=== PATIENT | female | born 1960 | race Caucasian/White ===

== ENCOUNTER → 2016-10-28 | Outpatient (CLI) | payer MEDICAID ==
[2016-10-28 09:18] LABS: ALT 21 U/L (9-52); AST 16 U/L (14-36); Alkaline Phosphatase 63 U/L (38-126); Anion Gap 11 mmol/L; Blood Urea Nitrogen 10 mg/dL (7-17); Calcium 9.5 mg/dL (8.4-10.2); Carbon Dioxide 28 mmol/L (22-30); Chloride 101 mmol/L (98-107); Cholesterol 192 mg/dL (<200); Glucose 108 mg/dL (74-99); HDL Cholesterol 75 mg/dL (40-60); Non-African American GFR(MDRD) >60 (>60 ml/min/1.73 sqM); Potassium 4.5 mmol/L (3.5-5.1); Sodium 140 mmol/L (137-145); Total Bilirubin 0.6 mg/dL (0.2-1.3); Triglycerides 142 mg/dL (<150)
[2016-10-28 16:00] LABS: Hemoglobin A1C 5.6 % (4.2-6.1)
== END | disposition home or self-care (01) ==
LOC: LABWHC1 08:09
PROVIDERS: ATTEND Internal Medicine Endocrinology, Diabetes & Metabolism
DX: E06.3 Autoimmune thyroiditis (principal); E11.9 Type 2 diabetes mellitus without complications; E55.9 Vitamin D deficiency, unspecified
CPT/HCPCS: 36415; 80053; 80061; 82043; 82306; 82570; 83036; 84439; 84443

== ENCOUNTER → 2017-01-26 | Outpatient (CLI) | payer MEDICAID ==
[2017-01-26 10:01] LABS: CH 28.6; CHCM 33.9; HCT 37.4 % (34.0-46.0); HGB 12.9 gm/dL (11.4-16.0); MCH 29.1 pg (25.0-35.0); MCHC 34.4 g/dL (31.0-37.0); MCV 84.6 fL (80.0-100.0); Mean Platelet Volume 7.7; RBC 4.42 m/uL (3.80-5.40); RDW 13.5 % (11.5-15.5); WBC 6.9 k/uL (3.8-10.6)
[2017-01-26 10:24] LABS: ALT 30 U/L (9-52); AST 18 U/L (14-36); Alkaline Phosphatase 66 U/L (38-126); Anion Gap 10 mmol/L; Blood Urea Nitrogen 11 mg/dL (7-17); Calcium 9.4 mg/dL (8.4-10.2); Carbon Dioxide 28 mmol/L (22-30); Chloride 102 mmol/L (98-107); Cholesterol 174 mg/dL (<200); Glucose 100 mg/dL (74-99); HDL Cholesterol 62 mg/dL (40-60); Non-African American GFR(MDRD) >60 (>60 ml/min/1.73 sqM); Potassium 4.7 mmol/L (3.5-5.1); Sodium 140 mmol/L (137-145); Total Bilirubin 0.4 mg/dL (0.2-1.3); Total Protein 6.4 g/dL (6.3-8.2); Triglycerides 96 mg/dL (<150)
[2017-01-26 10:38] LABS: Follicle Stimulating Hormone 13.8 mIU/mL
[2017-01-26 11:09] LABS: Vitamin B12 334 pg/mL (239-931)
== END | disposition home or self-care (01) ==
LOC: LABWHC1 09:20
PROVIDERS: ATTEND Obstetrics & Gynecology
DX: R53.83 Other fatigue (principal); L85.3 Xerosis cutis; R61 Generalized hyperhidrosis; R41.82 Altered mental status, unspecified; R41.3 Other amnesia; G47.00 Insomnia, unspecified; R63.3 Feeding difficulties; N95.1 Menopausal and female climacteric states; L65.9 Nonscarring hair loss, unspecified; M25.50 Pain in unspecified joint
CPT/HCPCS: 36415; 80053; 80061; 82306; 82607; 82672; 83001; 84403; 84439; 84443; 84481; 85027; 86376

== ENCOUNTER → 2017-03-08 | Outpatient (CLI) | payer MEDICAID ==
[2017-03-09 02:06] LABS: Estradiol 30.1 pg/mL
== END | disposition home or self-care (01) ==
LOC: LABWHC1 15:36
PROVIDERS: ATTEND Obstetrics & Gynecology
DX: N95.1 Menopausal and female climacteric states (principal); E53.8 Deficiency of other specified B group vitamins; L65.9 Nonscarring hair loss, unspecified
CPT/HCPCS: 36415; 82670; 83001; 84403

== ENCOUNTER → 2017-04-09 | Outpatient (CLI) | payer MEDICAID ==
--- NOTE | 2017-04-12 11:32 | MM ---
Reason for exam: screening (asymptomatic). Last mammogram was performed 1 year ago. History: Patient is postmenopausal, has history of high-risk lesion on a previous biopsy at age 54, and is nulliparous. Family history of breast cancer in mother at age 64. High risk US breast localization RT of the right breast, March 22, 2015. High risk US biopsy breast VAD RT of the right breast, March 06, 2015. Taking estrogen for 6 years 1 month beginning at age 47. Physical Findings: A clinical breast exam by your physician is recommended on an annual basis and results should be correlated with mammographic findings. MG 3D Screening Mammo W/Cad Bilateral CC and MLO view(s) were taken. Prior study comparison: March 30, 2016, bilateral MG 3d diag mammo w/cad [facility]. March 06, 2015, right breast MG diagnostic mammo RT wo CAD. There are scattered fibroglandular densities. Finding: There are typically benign vascular calcifications in the right breast. There is no discrete abnormality. ASSESSMENT: Benign, BI-RAD 2 RECOMMENDATION: Routine screening mammogram of both breasts in 1 year.
== END ==
LOC: RADMAMWWP 07:18
PROVIDERS: ATTEND Obstetrics & Gynecology
DX: Z12.31 Encounter for screening mammogram for malignant neoplasm of breast (principal); Z80.3 Family history of malignant neoplasm of breast
CPT/HCPCS: 77063; G0202

== ENCOUNTER → 2017-10-28 | Outpatient (CLI) | payer MEDICAID ==
[2017-10-28 10:06] LABS: ALT 17 U/L (9-52); AST 19 U/L (14-36); Albumin 4.5 g/dL (3.5-5.0); Alkaline Phosphatase 67 U/L (38-126); Anion Gap 14 mmol/L; Blood Urea Nitrogen 15 mg/dL (7-17); Calcium 9.8 mg/dL (8.4-10.2); Carbon Dioxide 29 mmol/L (22-30); Chloride 101 mmol/L (98-107); Cholesterol 181 mg/dL (<200); Glucose 128 mg/dL (74-99); HDL Cholesterol 65 mg/dL (40-60); LDL Cholesterol,Calculated 92 mg/dL (0-99); Potassium 5.1 mmol/L (3.5-5.1); Sodium 144 mmol/L (137-145); Total Bilirubin 0.5 mg/dL (0.2-1.3); Total Protein 6.9 g/dL (6.3-8.2); Triglycerides 122 mg/dL (<150)
== END | disposition home or self-care (01) ==
LOC: LABWHC1 07:48
PROVIDERS: ATTEND Internal Medicine Endocrinology, Diabetes & Metabolism
DX: E06.3 Autoimmune thyroiditis (principal); E78.5 Hyperlipidemia, unspecified; E55.9 Vitamin D deficiency, unspecified; E11.9 Type 2 diabetes mellitus without complications
CPT/HCPCS: 36415; 80053; 80061; 82306; 83036; 84439; 84443; 84481

== ENCOUNTER → 2017-12-22 | Outpatient (CLI) | payer MEDICAID | END | disposition home or self-care (01) | LOC: LABWHC1 10:06 | PROVIDERS: ATTEND Obstetrics & Gynecology | DX: Z78.0 Asymptomatic menopausal state (principal); Z79.890 Hormone replacement therapy | CPT/HCPCS: 36415; 82670; 83001; 84403 ==

== ENCOUNTER → 2018-05-19 | Outpatient (CLI) | payer MEDICAID ==
[2018-05-19 17:56] LABS: Albumin 4.3 g/dL (3.80-4.90); Albumin/Globulin Ratio 2.39 (1.20-2.10); Anion Gap 9.9 mmol/L (4.00-12.00); Calcium 9.3 mg/dL (8.7-10.3); Carbon Dioxide 28.1 mmol/L (21.6-31.8); Globulin 1.8 g/dL (2.1-3.7); LDL Cholesterol,Calculated 109.6 mg/dL (0.0-131.0); Potassium 4.7 mmol/L (3.5-5.5); Total Bilirubin 0.5 mg/dL (0.3-1.2); Total Protein 6.1 g/dL (6.2-8.2); VLDL Calculation 23.4 mg/dL (5.00-40.00)
[2018-05-19 18:02] LABS: T4, Free (Free Thyroxine) 0.9 ng/dL (0.80-1.80)
[2018-05-19 19:43] LABS: Hemoglobin A1C 6.3 % (4.0-6.0)
== END | disposition home or self-care (01) ==
LOC: LABWHC1 08:28
PROVIDERS: ATTEND Internal Medicine Endocrinology, Diabetes & Metabolism
DX: E06.3 Autoimmune thyroiditis (principal); E11.9 Type 2 diabetes mellitus without complications; E55.9 Vitamin D deficiency, unspecified
CPT/HCPCS: 36415; 80053; 80061; 82043; 82306; 82310; 82570; 83036; 84439; 84443; 84481

== ENCOUNTER → 2018-08-08 | Outpatient (CLI) | payer MEDICAID ==
--- NOTE | 2018-08-09 14:28 | MM ---
Reason for exam: screening (asymptomatic). Last mammogram was performed 1 year and 4 months ago. History: Patient is postmenopausal, has history of high-risk lesion on a previous biopsy at age 54, and is nulliparous. Family history of breast cancer in mother at age 64. High risk US breast localization RT of the right breast, March 22, 2015. High risk US biopsy breast VAD RT of the right breast, March 06, 2015. Taking estrogen for 6 years 1 month beginning at age 47. Physical Findings: A clinical breast exam by your physician is recommended on an annual basis and results should be correlated with mammographic findings. MG 3D Screening Mammo W/Cad Bilateral CC and MLO view(s) were taken. Prior study comparison: April 09, 2017, bilateral MG 3d screening mammo w/cad. March 30, 2016, bilateral MG 3d diag mammo w/cad [facility]. The breast tissue is heterogeneously dense. This may lower the sensitivity of mammography. There is no discrete abnormality. ASSESSMENT: Negative, BI-RAD 1 RECOMMENDATION: Routine screening mammogram of both breasts in 1 year.
== END | disposition home or self-care (01) ==
LOC: RADMAMWWP 06:56
PROVIDERS: ATTEND Obstetrics & Gynecology
DX: Z12.31 Encounter for screening mammogram for malignant neoplasm of breast (principal); Z80.3 Family history of malignant neoplasm of breast
CPT/HCPCS: 77063; 77067

== ENCOUNTER → 2018-09-02 | Outpatient (CLI) | payer MEDICAID ==
[2018-09-02 08:19] LABS: Basophils % (A) 1 %; Eosinophils # (A) 0.2 k/uL (0-0.7); Eosinophils % (A) 3 %; HCT 43.3 % (34.0-46.0); HGB 14.1 gm/dL (11.4-16.0); Lymphocytes # (A) 2.1 k/uL (1.0-4.8); Lymphocytes % (A) 32 %; MCH 28.9 pg (25.0-35.0); MCHC 32.6 g/dL (31.0-37.0); MCV 88.6 fL (80.0-100.0); Mean Platelet Volume 7.8; Monocytes # (A) 0.4 k/uL (0-1.0); Monocytes % (A) 5 %; Neutrophils # (A) 3.7 k/uL (1.3-7.7); Neutrophils % (A) 57 %; Platelet Count 258 k/uL (150-450); RBC 4.89 m/uL (3.80-5.40); RDW 14.1 % (11.5-15.5); WBC 6.6 k/uL (3.8-10.6)
[2018-09-02 17:34] LABS: ALT 25 U/L (8-44); AST 26 U/L (13-35); Albumin/Globulin Ratio 2.33 (1.60-3.17); Alkaline Phosphatase 63 U/L (41-126); Calcium 9.1 mg/dL (8.7-10.3); Carbon Dioxide 28.2 mmol/L (21.6-31.8); Chloride 101 mmol/L (96-109); Cholesterol 160 mg/dL (0-200); Globulin 1.8 g/dL (1.6-3.3); Glucose 126 mg/dL (70-110); Potassium 4.6 mmol/L (3.5-5.5); Sodium 140 mmol/L (135-145); Total Bilirubin 0.4 mg/dL (0.2-1.2)
== END | disposition home or self-care (01) ==
LOC: LABWHC1 07:45
PROVIDERS: ATTEND Internal Medicine Endocrinology, Diabetes & Metabolism
DX: E78.5 Hyperlipidemia, unspecified (principal); E55.9 Vitamin D deficiency, unspecified; E11.9 Type 2 diabetes mellitus without complications; E06.3 Autoimmune thyroiditis
CPT/HCPCS: 36415; 80053; 80061; 82043; 82306; 82570; 84439; 84443; 84481; 85025

== ENCOUNTER → 2018-10-27 | Outpatient (CLI) | payer MEDICAID ==
[2018-10-27 16:19] LABS: Anion Gap 11.6 mmol/L (4.00-12.00); Calcium 9.7 mg/dL (8.7-10.3); Carbon Dioxide 25.4 mmol/L (21.6-31.8)
[2018-10-27 16:29] LABS: T4, Free (Free Thyroxine) 0.8 ng/dL (0.80-1.80)
== END | disposition home or self-care (01) ==
LOC: LABWHC1 08:21
PROVIDERS: ATTEND Internal Medicine Endocrinology, Diabetes & Metabolism
DX: E66.9 Obesity, unspecified (principal); Z71.3 Dietary counseling and surveillance
CPT/HCPCS: 36415; 80048; 82043; 82570; 83036; 84439; 84443; 84481

== ENCOUNTER → 2019-04-14 | Outpatient (CLI) | payer MEDICAID ==
[2019-04-14 17:42] LABS: African American GFR (CKD) 121.9 (60.0-200.0); Albumin 4.2 g/dL (3.80-4.90); Albumin/Globulin Ratio 2.47 (1.60-3.17); Anion Gap 13.3 mmol/L (4.00-12.00); Calcium 9.4 mg/dL (8.7-10.3); Carbon Dioxide 25.7 mmol/L (21.6-31.8); Globulin 1.7 g/dL (1.6-3.3); Potassium 3.9 mmol/L (3.5-5.5); Total Bilirubin 0.4 mg/dL (0.2-1.2); Total Protein 5.9 g/dL (6.2-8.2)
[2019-04-14 17:45] LABS: Estradiol 72.2 pg/mL; Follicle Stimulating Hormone 5.4 mIU/mL
[2019-04-14 18:20] LABS: Progesterone 0.2 ng/mL; T4, Free (Free Thyroxine) 0.5 ng/dL (0.80-1.80)
[2019-04-14 18:52] LABS: Hemoglobin A1C 6.8 % (4.0-6.0)
== END | disposition home or self-care (01) ==
LOC: LABWHC1 09:10
PROVIDERS: ATTEND Internal Medicine Endocrinology, Diabetes & Metabolism
DX: R53.83 Other fatigue (principal); N95.1 Menopausal and female climacteric states; E03.9 Hypothyroidism, unspecified; R61 Generalized hyperhidrosis; E11.9 Type 2 diabetes mellitus without complications; E78.5 Hyperlipidemia, unspecified; E55.9 Vitamin D deficiency, unspecified
CPT/HCPCS: 36415; 80053; 82306; 82670; 83001; 83036; 84144; 84403; 84439; 84443; 84481

== ENCOUNTER → 2019-05-01 | Outpatient (CLI) | payer MEDICAID ==
--- NOTE | 2019-05-01 14:07 | XR ---
Left wrist HISTORY: Trauma and pain, M 25.532 4 views of the left wrist Soft tissue swelling is noted at the radial styloid region. Alignment, bone mineralization, joint spa patrick are maintained. IMPRESSION: No fracture or dislocation. Wrist MRI may be of benefit as indicated.
== END | disposition home or self-care (01) ==
LOC: RADXRMAIN 09:22
PROVIDERS: ATTEND Internal Medicine
DX: M25.532 Pain in left wrist (principal)

== ENCOUNTER → 2019-05-29 | Outpatient (CLI) | payer MEDICAID ==
--- NOTE | 2019-05-30 01:57 | MR ---
EXAMINATION TYPE: MR wrist LT wo con DATE OF EXAM: 05/29/2019 COMPARISON: None HISTORY: Lt wrist pain due to injury, swelling, limited movement Standard multiplanar, multisequence MRI departmental protocol Multiplanar, multisequence images of the left wrist were acquired. FINDINGS: The carpal bones are intact. Intercarpal joint spaces are fairly normal. The distal radius and ulna appear intact. I see no bony destructive process. There is no evidence of a fracture. The vi sualized metacarpals appear intact. Flexor tendons of the wrist appear intact. There is subcutaneous edema on the dorsum of the wrist. Th ere is no significant joint fluid. Extensor tendons of the wrist appear intact. Triangular cartilage appears intact. IMPRESSION: No fracture. There is subcutaneous edema on the dorsum and radial side of the wrist. No evidence of l igament or tendon tear.
== END | disposition home or self-care (01) ==
LOC: RADMRIMAIN 20:41
PROVIDERS: ATTEND Internal Medicine
DX: R60.9 Edema, unspecified (principal)

== ENCOUNTER → 2019-12-08 | Outpatient (CLI) | payer MEDICAID ==
--- NOTE | 2019-12-12 08:27 | MM ---
Reason for exam: screening (asymptomatic). Last mammogram was performed 1 year and 4 months ago. History: Patient is postmenopausal, has history of high-risk lesion on a previous biopsy at age 54, and is nulliparous. Family history of breast cancer in mother at age 64. High risk US breast localization RT of the right breast, March 22, 2015. High risk US biopsy breast VAD RT of the right breast, March 06, 2015. Taking estrogen for 6 years 1 month beginning at age 47. Took progesterone beginning at age 57. Physical Findings: A clinical breast exam by your physician is recommended on an annual basis and results should be correlated with mammographic findings. MG 3D Screening Mammo W/Cad Bilateral CC and MLO view(s) were taken. Prior study comparison: August 08, 2018, bilateral MG 3d screening mammo w/cad. April 09, 2017, bilateral MG 3d screening mammo w/cad. There are scattered fibroglandular densities. There is chronic nodularity in the right breast. There is no discrete abnormality. ASSESSMENT: Negative, BI-RAD 1 RECOMMENDATION: Routine screening mammogram of both breasts in 1 year.
== END | disposition home or self-care (01) ==
LOC: RADMAMWWP 13:39
PROVIDERS: ATTEND Obstetrics & Gynecology
DX: Z80.3 Family history of malignant neoplasm of breast (principal)
CPT/HCPCS: 77063; 77067

== ENCOUNTER → 2020-02-13 | Outpatient (CLI) | payer MEDICAID ==
[2020-02-13 09:05] LABS: HCT 43.5 % (34.0-46.0); HGB 14.2 gm/dL (11.4-16.0); MCH 28.4 pg (25.0-35.0); MCHC 32.6 g/dL (31.0-37.0); MCV 87.1 fL (80.0-100.0); Mean Platelet Volume 8.2; Platelet Count 241 k/uL (150-450); RBC 4.99 m/uL (3.80-5.40); RDW 13.3 % (11.5-15.5); WBC 7.4 k/uL (3.8-10.6)
[2020-02-13 17:04] LABS: Chol/HDL Ratio 4.16; LDL Cholesterol,Calculated 128.8 mg/dL (0.0-131.0); VLDL Calculation 32.2 mg/dL (5.00-40.00)
[2020-02-13 17:13] LABS: Estradiol 92.4 pg/mL; Follicle Stimulating Hormone 3.5 mIU/mL
[2020-02-13 17:25] LABS: T4, Free (Free Thyroxine) 0.5 ng/dL (0.80-1.80)
[2020-02-13 18:00] LABS: Urine Creatinine 187.3 mg/dL
[2020-02-13 19:21] LABS: Hemoglobin A1C 7.9 % (4.0-6.0)
== END | disposition home or self-care (01) ==
LOC: LABWHC1 07:48
PROVIDERS: ATTEND Obstetrics & Gynecology
DX: E11.9 Type 2 diabetes mellitus without complications (principal); E78.5 Hyperlipidemia, unspecified; E06.3 Autoimmune thyroiditis; E55.9 Vitamin D deficiency, unspecified; N95.1 Menopausal and female climacteric states; Z79.890 Hormone replacement therapy
CPT/HCPCS: 36415; 80061; 82043; 82306; 82570; 82670; 83001; 83036; 84144; 84402; 84403; 84439; 84443; 85027

== ENCOUNTER → 2020-06-12 | Outpatient (CLI) | payer MEDICAID ==
[2020-06-12 15:27] LABS: T4, Free (Free Thyroxine) 0.6 ng/dL (0.80-1.80)
[2020-06-12 15:31] LABS: Hemoglobin A1C 5.8 % (4.0-6.0)
== END | disposition home or self-care (01) ==
LOC: LABWHC1 08:27
PROVIDERS: ATTEND Internal Medicine
DX: E11.9 Type 2 diabetes mellitus without complications (principal); E06.3 Autoimmune thyroiditis
CPT/HCPCS: 36415; 83036; 84439; 84443

== ENCOUNTER → 2020-10-17 | Outpatient (CLI) | payer MEDICAID ==
[2020-10-17 19:00] LABS: Urine Creatinine 229.9 mg/dL
[2020-10-17 19:56] LABS: African American GFR (CKD) 107.6 (60.0-200.0); Anion Gap 8.3 mmol/L (4.00-12.00); Calcium 9.3 mg/dL (8.7-10.3); Carbon Dioxide 27.7 mmol/L (21.6-31.8); Chol/HDL Ratio 3.91; LDL Cholesterol,Calculated 139.4 mg/dL (0.0-131.0); Non-African American GFR(CKD) 92.9 (60.0-200.0); Potassium 4.9 mmol/L (3.5-5.5); VLDL Calculation 17.6 mg/dL (5.00-40.00)
[2020-10-17 20:09] LABS: T4, Free (Free Thyroxine) 0.8 ng/dL (0.80-1.80)
[2020-10-17 22:06] LABS: Hemoglobin A1C 5.4 % (4.0-6.0)
== END | disposition home or self-care (01) ==
LOC: LABWHC1 08:46
PROVIDERS: ATTEND Internal Medicine
DX: E11.9 Type 2 diabetes mellitus without complications (principal); E06.3 Autoimmune thyroiditis
CPT/HCPCS: 36415; 80048; 80061; 82043; 82570; 83036; 84439; 84443

== ENCOUNTER → 2020-12-16 | Outpatient (CLI) | payer MEDICAID ==
--- NOTE | 2020-12-19 09:04 | MM ---
Reason for exam: screening (asymptomatic). Last mammogram was performed 1 year ago. History: Patient is postmenopausal, has history of high-risk lesion on a previous biopsy at age 54, and is nulliparous. Family history of breast cancer in mother at age 64. High risk US breast localization RT of the right breast, March 22, 2015. High risk US biopsy breast VAD RT of the right breast, March 06, 2015. Took hormonal contraceptives for 4 years. Taking estrogen for 6 years 1 month beginning at age 47. Took progesterone beginning at age 57. Physical Findings: A clinical breast exam by your physician is recommended on an annual basis and results should be correlated with mammographic findings. MG 3D Screening Mammo W/Cad Bilateral CC and MLO view(s) were taken. Prior study comparison: December 08, 2019, bilateral MG 3d screening mammo w/cad. August 08, 2018, bilateral MG 3d screening mammo w/cad. There are scattered fibroglandular densities. Finding: There are developing grouped/clustered fine calcifications in the 9 o'clock outer quadrant, anterior position of the right breast. New finding since December 08, 2019 and August 08, 2018. ASSESSMENT: Incomplete: need additional imaging evaluation, BI-RAD 0 RECOMMENDATION: Special view mammogram of the right breast. [facility] will attempt to contact patient to return for supplemental views.
== END | disposition home or self-care (01) ==
LOC: RADMAMWWP 06:59
PROVIDERS: ATTEND Obstetrics & Gynecology
DX: Z12.31 Encounter for screening mammogram for malignant neoplasm of breast (principal); Z78.0 Asymptomatic menopausal state; Z80.3 Family history of malignant neoplasm of breast
CPT/HCPCS: 77063; 77067

== ENCOUNTER → 2020-12-20 | Outpatient (CLI) | payer MEDICAID ==
--- NOTE | 2020-12-26 10:40 | MM ---
Reason for exam: additional evaluation requested from abnormal screening. Last mammogram was performed less than 1 month ago. History: Patient is postmenopausal, has history of high-risk lesion on a previous biopsy at age 54, and is nulliparous. Family history of breast cancer in mother at age 64. High risk US breast localization RT of the right breast, March 22, 2015. High risk US biopsy breast VAD RT of the right breast, March 06, 2015. Took hormonal contraceptives for 4 years. Taking estrogen for 6 years 1 month beginning at age 47. Took progesterone beginning at age 57. Physical Findings: Nurse did not find any significant physical abnormalities on exam. MG 3D Work Up W/Cad RT CC with magnification, LM with magnification, and LM view(s) were taken of the right breast. Prior study comparison: December 16, 2020, bilateral MG 3d screening mammo w/cad. December 08, 2019, bilateral MG 3d screening mammo w/cad. There are scattered fibroglandular densities. New grouped calcifications 9-10 o'clock anteriorly. These are indeterminate. These results were verbally communicated with the patient and result sheet given to the patient on 12/20/20. ASSESSMENT: Incomplete: need additional imaging evaluation, BI-RAD 0 RECOMMENDATION: Stereotactic core biopsy of the right breast. Called Dr. Adrian's office with mammographic findings and has scheduled an appointment for the patient for 02/06/21 at 8:[address] Farfan. Biopsy scheduled for 01/06/21 at 10:30. PRELIMINARY REPORT CALLED AND FAXED TO DR. FARFAN ON 12/20/20.
== END | disposition home or self-care (01) ==
LOC: RADMAMWWP 08:17
PROVIDERS: ATTEND Obstetrics & Gynecology
DX: N64.89 Other specified disorders of breast (principal); R92.1 Mammographic calcification found on diagnostic imaging of breast
CPT/HCPCS: 77061; 77065

== ENCOUNTER → 2021-01-06 | Day surgery (SDC) | payer MEDICAID ==
[2021-01-06 10:02] VITALS: RESP 12
[2021-01-06 11:41] VITALS: BP 130/74; PULSE 76; TEMP 98.5
--- NOTE | 2021-01-06 17:29 | MM ---
EXAMINATION TYPE: MG stereo VAD BX RT DATE OF EXAM: 01/06/2021 COMPARISON: Mammogram 12/20/2020 CLINICAL HISTORY: Right breast calcifications TECHNIQUE: Stereotactic guided core biopsy of right breast. FINDINGS: The procedure of stereotactic guided core biopsy was explained to the patient. Benefits, a lternatives, and risks were discussed. An informed consent was then obtained. The shortness pathway for biopsy was chosen. Shortness pathway was right cc approach. A vacuum assi sted biopsy gun was used to obtain multiple core samples. The patient tolerated the procedure well without any immediate complication. The patient was kept in the radiology department for short stay after the procedure and then discharged home in stable condi tion. Targeted calcifications are identified in specimen mammogram. Post biopsy mammogram shows the clip to appear in satisfactory position relative to the targeted area of concern on the preprocedure images. IMPRESSION: SUCCESSFUL, UNCOMPLICATED STEREOTACTIC GUIDED CORE BIOPSY OF AREA OF CONCERN IN THE RIGHT BREAST, FUL L PATHOLOGY RESULTS TO FOLLOW.
== END ==
LOC: RADMAMWWP 09:26
PROVIDERS: ATTEND Surgery
DX: D05.11 Intraductal carcinoma in situ of right breast (principal); Z88.1 Allergy status to other antibiotic agents; Z88.0 Allergy status to penicillin; Z91.09 Other allergy status, other than to drugs and biological substances
CPT/HCPCS: 88305; 88342; 88341; 19081; A4648; J2001

== ENCOUNTER 2021-02-14 07:51 | Day surgery (SDC) | payer MEDICAID ==
[2021-02-12 08:36] VITALS: BMI 37.8
--- NOTE | 2021-02-13 14:15 | P.HPADDEND ---
H&P Addendum H&P Addendum Date: 02/14/21 Patient's genetic testing showed a variant of unknown significance. Patient remains interested in breast conservation. We'll proceed with right breast lumpectomy with wire localization.
--- NOTE | 2021-02-13 14:18 | P.NAPBC ---
NAPBC Queries - NAPBC Queries Was patient's case review presented at [facility] tumor board? If no, comment.: No Was patient's pathology reviewed at [facility]? If no, comment.: Yes Was breast conservation surgery offered? If no, comment.: Yes Was sentinel node biopsy offered? If no, comment.: Yes Was diagnosis confirmed by percutaneous core biopsy? If no, comment.: Yes Is patient mastectomy patient?: Yes Was a preop referral to reconstructive surgeon offered?: Yes Clinical Stage: 0
[~2021-02-14 07:51] MED LIST: ACETAMINOPHEN TAB 500 MG TAB PO PRN; HEPARIN SODIUM,PORCINE/PF 5,000 UNIT/0.5 ML SYRINGE SQ PRN; Pre Op ABX Message 1 EACH MISC MISCELLANE ONE
[2021-02-14] MEDS ORDERED: ONDANSETRON 4 MG/2 ML VIAL ONE (08:23)
[2021-02-14] MEDS ORDERED: ALPRAZolam 0.25 MG TAB ONE (08:23)
[2021-02-14] MEDS ORDERED: LACTATED RINGERS 1,000 ML IV ONE (08:26)
[2021-02-14] MEDS ORDERED: ONDANSETRON 4 MG/2 ML VIAL IVP ONE (08:26)
[2021-02-14 08:27] LABS: Glucose,Whole Blood 97 mg/dL (75-99)
[2021-02-14] MEDS ORDERED: DEXAMETHASONE SOD PHOSPHATE 4 MG/ML 1 ML VIAL IVP ONE (08:27)
[2021-02-14] MEDS ORDERED: LIDOCAINE 1% INJ 10MG/ML (20 ML MDV) SQ ONE (09:23)
[2021-02-14] MEDS ORDERED: BUPIVACAINE (PF) 0.5% 30 ML VIAL SQ ONE (10:18)
[2021-02-14] MEDS ORDERED: MIDAZOLAM 2 MG/2 ML VIAL ONE (10:25)
[2021-02-14] MEDS ORDERED: SUCCINYLCHOLINE CHLORIDE 100 MG/5 ML SYR IV ONE (10:25)
[2021-02-14] MEDS ORDERED: PROPOFOL 10 MG/ML 20 ML VIAL IV ONE (10:25)
[2021-02-14] MEDS ORDERED: fentaNYL (PF) 50 MCG/ML 2 ML AMP ONE (10:25)
[2021-02-14] MEDS ORDERED: LIDOCAINE 1% INJ 10MG/ML (20 ML MDV) ONE (10:25)
[2021-02-14] MEDS ORDERED: SODIUM CHLORIDE 0.9% 100 ML with ceFAZolin 2,000 MG IV ONE ×2 (10:28)
[2021-02-14] MEDS ORDERED: traMADol 50 MG TAB PO PRN (11:25)
[2021-02-14] MEDS ORDERED: NALOXONE 0.4 MG/ML 1 ML VIAL IV PRN (11:25)
--- NOTE | 2021-02-14 11:29 | P.OP ---
Date of Procedure: 02/14/21 Procedure(s) Performed: PREOPERATIVE DIAGNOSIS: Right breast cancer POSTOPERATIVE DIAGNOSIS: Same PROCEDURE: Right Breast wire localization lumpectomy SURGEON: Naheed EBL: 5 mL ANESTHESIA: General COMPLICATIONS: None OPERATIVE PROCEDURE: Patient was placed on the operating room table in the supine position. The wire entrance site was then addressed. This was present at the 9:00 location. A curvilinear incision was made adjacent to the wire entrance site. I followed the wire down into the breast tissue. An adequate lumpectomy specimen then took place around the wire. Margins of 1.5-2 cm worth attempted to be achieved. Palpation of the specimen revealed that there was some induration on the medial aspect. I took an additional medial margin and this was pain in the appropriate yellow color on the new margin side. The specimen was then painted the appropriate 6 colors. Clips were used to identify the lumpectomy cavity. The clip was confirmed to be within the lumpectomy specimen by radiology. The subcutaneous tissues were closed using 3-0 Vicryl sutures. The skin was closed using a running 4-0 Monocryl stitch. Skin glue and sterile dressings were then applied. DISPOSITION: Stable to recovery room
[2021-02-14 11:31] VITALS: TEMP 96.8
[2021-02-14 12:30] VITALS: BP 119/80; PULSE 78; RESP 20
--- NOTE | 2021-02-17 13:56 | MM ---
EXAMINATION TYPE: MG pre op needle loc RT DATE OF EXAM: 02/14/2021 COMPARISON: NONE CLINICAL HISTORY: Abnormal biopsy TECHNIQUE: Needle localization with wire placement and surgical excision of [facility] FINDINGS: The procedure of needle localization with wire placement and than surgical excision was exp lained to the patient. Benefits, alternatives, and risks were discussed. An informed consent was th en obtained. Timeout was performed. The shortest pathway for procedure was chosen. Shortest pathway was lateral approach. The overlying skin was prepped and draped in usual sterile fashion. Lidocaine buffered with bicarbonate was used a s anesthetic into the skin and subcutaneous tissue up to the level of area of concern. A 7 cm needle was used. It was placed via a lateral approach under mammographic guidance. Subsequent 90 degrees mammogram show the needle to be in satisfactory position relative to the targeted area. At this poin t, wire was placed and the needle was withdrawn. The wire was fixed to patient's skin. Images were marked for surgeon. The patient tolerated the procedure well without any immediate complication. The patient was kept in the radiology department for short stay after the procedure and then taken to surgery for surgical e xcision. Targeted core marker and wire are identified in specimen mammogram. The patient was kept i hospital for short stay after the procedure and then discharged home in stable condition. IMPRESSION: 1. Successful wire localization and excision. Recommendations: 1. Recommendations are pending pathology results.
== END 2021-02-14 13:23 | disposition home or self-care (01) ==
LOC: OR 07:51
PROVIDERS: ATTEND Surgery
DX: C50.911 Malignant neoplasm of unspecified site of right female breast (principal); E11.9 Type 2 diabetes mellitus without complications; E07.9 Disorder of thyroid, unspecified; F03.90 Unspecified dementia, unspecified severity, without behavioral disturbance, psychotic disturbance, mood disturbance, and anxiety; K21.9 Gastro-esophageal reflux disease without esophagitis; Z79.890 Hormone replacement therapy
CPT/HCPCS: 19281; 19301; 76098; J2250; J1100; J2405; J0690; J2001; J3010; J0330; J2704; J1644; 88307

== ENCOUNTER → 2021-03-07 | Outpatient (CLI) | payer MEDICAID ==
[2021-03-07 21:02] LABS: Hemoglobin A1C 5.4 % (4.0-6.0)
[2021-03-07 21:31] LABS: T4, Free (Free Thyroxine) 0.7 ng/dL (0.80-1.80)
== END | disposition home or self-care (01) ==
LOC: LABWHC1 11:42
PROVIDERS: ATTEND Internal Medicine
DX: E11.9 Type 2 diabetes mellitus without complications (principal); E06.3 Autoimmune thyroiditis
CPT/HCPCS: 36415; 83036; 84439; 84443

== ENCOUNTER → 2021-03-20 | Outpatient (CLI) | payer MEDICAID ==
--- NOTE | 2021-03-20 19:20 | BD ---
EXAMINATION TYPE: Axial Bone Density DATE OF EXAM: 03/20/2021 COMPARISON: 05/03/2013 CLINICAL HISTORY: Postmenopausal screening Height: 4 ft 11 1/2 in Weight: 198 FRAX RISK QUESTIONS: Alcohol (3 or more units per day): NO Family History (Parent hip fracture): NO Glucocorticoids (More than 3mos): NO (Ex: prednisone, prednisolone, methylprednisolone, dexamethasone, and hydrocortisone). History of Fracture in Adulthood: NO Secondary Osteoporosis: 1. Type 1 Diabetes: NO 2. Hyperthyroidism: NO 3. Menopause before 45: YES 4. Malnutrition: NO 5. Chronic liver disease: NO Rheumatoid Arthritis: NO Current Tobacco Use: NO RISK FACTORS HISTORY OF: Surgery to Spine/Hip(right/left)/Wrist (right/left): NO Family History of Osteoporosis: NO Active: NO Diet low in dairy products/other sources of calcium: NO Postmenopausal woman: TOTAL HYST AGE 43 Take estrogen and/or progesterone medications: TOOK HRT FROM AGE [age] JUST DIAG WITH BREAST CANCER Lost more than 2 inches in height since high school: NO MEDICATIONS: Thyroid Medications: YES Which medication: LEVOTHYROXINE How Long: SINCE AGE 17 Additional Medications: LEVOTHYROXINE, DIABETES MEDS, METFORMIN, VIT D, CYTAMIL Additional History: BREAST CANCER 2020 GETTING READY TO START RADIATION EXAM MEASUREMENTS: Bone mineral densitometry was performed using the [employer] System. Bone mineral density as measured about the Lumbar spine is: ----- L1-L4(G/cm2): 1.376 T Score Values are as follows: ----- L2: 1.6 ----- L3: 2.3 ----- L4: 1.5 ----- L1-L4: 1.6 Bone mineral density has: INCREASED 4.3 % since study of: 2012 Bone mineral density about the R hip (g/cm2): 1.037 Bone mineral density about the L hip (g/cm2): 1.016 T Score values are as follows: -----R Neck: 0.0 -----L Neck: -0.2 -----R Total: 1.3 -----L Total: 1.2 Bone mineral density has: DECREASED -1.9 % since study of: 2012 IMPRESSION: Normal (Values between +1 and -1 indicate normal bone mass). Consider repeating this study in 5 year s or sooner if there is some new clinical indication. NOTE: T-SCORE=SD OF THE YOUNG ADULT MEAN.
== END | disposition home or self-care (01) ==
LOC: RADBDWWP 08:14
PROVIDERS: ATTEND Internal Medicine Hematology & Oncology
DX: Z13.820 Encounter for screening for osteoporosis (principal); C50.919 Malignant neoplasm of unspecified site of unspecified female breast; Z78.0 Asymptomatic menopausal state
CPT/HCPCS: 77080

== ENCOUNTER 2021-07-01 06:16 | Day surgery (SDC) | payer MEDICAID ==
[2021-06-27 12:31] VITALS: BMI 37.7
[~2021-07-01 06:16] MED LIST changes: -ACETAMINOPHEN TAB 500 MG TAB PO PRN; -HEPARIN SODIUM,PORCINE/PF 5,000 UNIT/0.5 ML SYRINGE SQ PRN; +LACTATED RINGERS 1,000 ML IV SCH; +LIDOCAINE 1% (10MG/ML) FOR IV START INTRADERMA PRN; -Pre Op ABX Message 1 EACH MISC MISCELLANE ONE
[2021-07-01] MEDS ORDERED: LIDOCAINE 1% (10MG/ML) FOR IV START INTRADERMA ONE (06:57)
[2021-07-01] MEDS ORDERED: LACTATED RINGERS 1,000 ML IV ONE (06:57)
[2021-07-01 07:08] LABS: Glucose,Whole Blood 89 mg/dL (75-99)
[2021-07-01] MEDS ORDERED: LIDOCAINE 1% INJ 10MG/ML (20 ML MDV) ONE (07:09)
[2021-07-01] MEDS ORDERED: PROPOFOL 10 MG/ML 20 ML VIAL IV ONE (07:09)
[2021-07-01 07:29] VITALS: RESP 16; TEMP 97.1
--- NOTE | 2021-07-01 07:29 | P.PCN ---
Date of Procedure: 07/01/21 Procedure(s) Performed: BRIEF HISTORY: Patient is a 60-year-old pleasant White female scheduled for an elective colonoscopy as a part of evaluation of prior history of colon polyps. Last colonoscopy was 5 years ago. Procedure performed: Colonoscopy. PREOPERATIVE DIAGNOSIS: History of colon polyps. IV sedation per Anesthesia. PROCEDURE: After informed consent was obtained, the patient, was brought into the endoscopy unit. IV sedation was administered by Anesthesia under continuous monitoring. Digital rectal examination was normal. Initially the Olympus CF-160 flexible video colonoscope was then inserted in the rectum, gradually advanced into the cecum without any difficulty. Careful examination was performed as the scope was gradually being withdrawn. Ileocecal valve and the appendiceal orifice were visualized and appeared normal. Prep was excellent. Mucosa of the cecum, ascending colon, transverse colon, descending colon, sigmoid colon, and rectum appeared normal. Retroflexion was performed in the rectum and no lesions were seen. The patient tolerated the procedure well. IMPRESSION: Normal-appearing colon from rectum to cecum with no evidence of colorectal neoplasia . RECOMMENDATIONS: Findings of this examination were discussed with the patient as well as a family. She was advised to have a repeat screening colonoscopy in 5 years because of the prior history of colon polyps..
[2021-07-01 08:16] VITALS: BP 121/80; PULSE 67
== END 2021-07-01 08:20 | disposition home or self-care (01) ==
LOC: ORWHC2ENDO 06:16
PROVIDERS: ATTEND Internal Medicine Gastroenterology
DX: Z86.010 Personal history of colon polyps (principal)
CPT/HCPCS: 45378; J2001; J2704

== ENCOUNTER → 2021-08-12 | Outpatient (CLI) | payer MEDICAID ==
[2021-08-12 15:47] LABS: T4, Free (Free Thyroxine) 0.76 ng/dL (0.800-1.800)
== END | disposition home or self-care (01) ==
LOC: LABWHC1 07:29
PROVIDERS: ATTEND Internal Medicine
DX: E11.9 Type 2 diabetes mellitus without complications (principal); E03.9 Hypothyroidism, unspecified
CPT/HCPCS: 36415; 83036; 84439; 84443

== ENCOUNTER → 2021-09-25 | Outpatient (CLI) | payer MEDICAID ==
[2021-09-25 18:27] LABS: HCT 41.1 % (37.2-46.3); HGB 13.3 g/dL (12.0-15.0); MCH 27.6 pg (27.0-32.0); MCHC 32.4 g/dL (32.0-37.0); MCV 85.3 fL (80.0-97.0); NRBC Per 100 WBC 0 /100 WBCS (0.0-0.0); Platelet Count 245 X 10*3/uL (140-440); RBC 4.82 X 10*6/uL (4.10-5.20); WBC 5.68 X 10*3/uL (4.50-10.00)
[2021-09-25 18:32] LABS: ALT 20 U/L (8-44); AST 18 U/L (13-35); African American GFR (CKD) 113.1 (60.0-200.0); Albumin 4.3 g/dL (3.8-4.9); Albumin/Globulin Ratio 2.07 (1.60-3.17); Alkaline Phosphatase 63 U/L (41-126); BUN/Creat Ratio 22.75 Ratio (12.00-20.00); Blood Urea Nitrogen 13.4 mg/dL (9.0-27.0); Calcium 9.3 mg/dL (8.7-10.3); Carbon Dioxide 24.5 mmol/L (20.0-27.5); Chloride 103 mmol/L (96-109); Chol/HDL Ratio 3.76 Ratio; Globulin 2.1 g/dL (1.6-3.3); Glucose 89 mg/dL (70-110); Non-African American GFR(CKD) 97.6 (60.0-200.0); Potassium 4.7 mmol/L (3.5-5.5); Sodium 139 mmol/L (135-145); Total Bilirubin <0.15 mg/dL (0.30-1.20); Total Protein 6.4 g/dL (6.2-8.2)
[2021-09-25 23:14] LABS: Appearance,Urine Clear (Clear); Bacteria,Urine 1+ /HPF (None Seen); Bilirubin,Urine Negative (Negative); Blood,Urine Negative (Negative); Color,Urine Yellow (Yellow); Ketones,Urine Negative (Negative); Leukocyte Esterase,Urine Small (Negative); Nitrite,Urine Negative (Negative); Protein,Urine Negative (Negative); Specific Gravity,Urine 1.018 (1.001-1.030); Urobilinogen,Urine 0.2 (0.2,1.0)
[2021-09-26 18:03] LABS: Microalbumin Creatinine Ratio <30 mg/g Creat (0-30)
== END | disposition home or self-care (01) ==
LOC: LABWHC1 10:44
PROVIDERS: ATTEND Internal Medicine
DX: I10 Essential (primary) hypertension (principal); E11.9 Type 2 diabetes mellitus without complications; E78.5 Hyperlipidemia, unspecified; E03.9 Hypothyroidism, unspecified
CPT/HCPCS: 36415; 80053; 80061; 81001; 82043; 82570; 83036; 84443; 85027

== ENCOUNTER → 2021-12-17 | Outpatient (CLI) | payer MEDICAID ==
--- NOTE | 2021-12-17 08:20 | MM ---
Reason for Exam: Follow-up at short interval from prior study. Last screening mammogram was performed 12 month(s) ago. Patient History: Menarche at age 9. Patient has no children. Left ovary removed at age 43. Right ovary removed at age 43. Hysterectomy at age 43. Postmenopausal. Breast cancer, age 60. Currently using Estrogen, beginning at age 47 for 6 years, 1 month. Progesterone, starting at age 57. Patient used Hormonal Contraceptives for 4 years. 02/14/2021, Lumpectomy on the Right side. 02/14/2021, Malignant Core Biopsy on the right side. 01/06/2021, Malignant Core Biopsy on the right side. 03/22/2015, High risk Core Biopsy on the right side. 03/06/2015, High risk Core Biopsy on the right side. Mother had breast cancer, age 64. Prior Study Comparison: 08/08/2018 Bilateral Screening Mammogram, [facility]. 12/08/2019 Bilateral Screening Mammogram, [facility]. 12/20/2020 Right Diagnostic Mammogram, [facility]. Tissue Density: The breast tissue is heterogeneously dense. This may lower the sensitivity of mammography. Findings: Analyzed By CAD. Postoperative changes right breast. No evidence for suspicious mass or suspicious cluster of microcalcifications. Overall Assessment: Benign, BI-RAD 2 Management: Diagnostic Mammogram of both breasts in 1 year. A clinical breast exam by your physician is recommended on an annual basis and results should be correlated with mammographic findings. This exam should not preclude additional follow-up of suspicious palpable abnormalities. Results were given to the patient verbally at the time of exam. Electronically signed and approved by: Vikas Montaño M.D. Radiologis
== END | disposition home or self-care (01) ==
LOC: RADMAMWWP 07:42
PROVIDERS: ATTEND Surgery
DX: R92.8 Other abnormal and inconclusive findings on diagnostic imaging of breast (principal); Z80.3 Family history of malignant neoplasm of breast
CPT/HCPCS: 77062; 77066

== ENCOUNTER → 2022-05-27 | Outpatient (CLI) | payer MEDICAID ==
[2022-05-27 11:49] LABS: ALT 17 U/L (8-44); AST 16 U/L (13-35); African American GFR (CKD) 107.8 (60.0-200.0); Albumin 4.5 g/dL (3.8-4.9); Albumin/Globulin Ratio 2.31 (1.60-3.17); Alkaline Phosphatase 56 U/L (41-126); BUN/Creat Ratio 25.37 Ratio (12.00-20.00); Blood Urea Nitrogen 17.3 mg/dL (9.0-27.0); Calcium 9.4 mg/dL (8.7-10.3); Carbon Dioxide 15.3 mmol/L (20.0-27.5); Chloride 105 mmol/L (96-109); Chol/HDL Ratio 3.69 Ratio; Glucose 120 mg/dL (70-110); LDL Cholesterol,Calculated 135.5 mg/dL (0.0-131.0); Magnesium 2.1 mg/dL (1.5-2.4); Potassium 5.4 mmol/L (3.5-5.5); Sodium 144 mmol/L (135-145); Total Bilirubin <0.15 mg/dL (0.30-1.20); Total Protein 6.5 g/dL (6.2-8.2)
[2022-05-27 18:50] LABS: Microalbumin Creatinine Ratio <30 mg/g Creat (0-30)
== END | disposition home or self-care (01) ==
LOC: LABWHC1 07:14
PROVIDERS: ATTEND Internal Medicine
DX: E11.9 Type 2 diabetes mellitus without complications (principal); E03.9 Hypothyroidism, unspecified; R25.2 Cramp and spasm
CPT/HCPCS: 36415; 80053; 80061; 82043; 82570; 83036; 83735; 84439; 84443

== ENCOUNTER → 2022-11-26 | Outpatient (CLI) | payer MEDICAID ==
[2022-11-26 11:15] LABS: Microalbumin Creatinine Ratio <30 mg/g Creat (0-30)
[2022-11-26 11:22] LABS: ALT 20 U/L (8-44); AST 17 U/L (13-35); African American GFR (CKD) 111.6 (60.0-200.0); Albumin 4.6 g/dL (3.8-4.9); Albumin/Globulin Ratio 1.92 (1.60-3.17); Alkaline Phosphatase 59 U/L (41-126); BUN/Creat Ratio 22.67 Ratio (12.00-20.00); Blood Urea Nitrogen 13.6 mg/dL (9.0-27.0); Calcium 9.8 mg/dL (8.7-10.3); Carbon Dioxide 26.6 mmol/L (20.0-27.5); Chloride 102 mmol/L (96-109); Chol/HDL Ratio 3.38 Ratio; Globulin 2.4 g/dL (1.6-3.3); Glucose 112 mg/dL (70-110); Non-African American GFR(CKD) 96.3 (60.0-200.0); Potassium 5.3 mmol/L (3.5-5.5); Sodium 140 mmol/L (135-145)
== END | disposition home or self-care (01) ==
LOC: LABWHC1 07:27
PROVIDERS: ATTEND Internal Medicine
DX: E11.9 Type 2 diabetes mellitus without complications (principal); E03.9 Hypothyroidism, unspecified
CPT/HCPCS: 36415; 80053; 80061; 82043; 82570; 83036; 84439; 84443

== ENCOUNTER → 2022-12-23 | Outpatient (CLI) | payer MEDICAID ==
--- NOTE | 2022-12-23 07:49 | MM ---
Reason for Exam: Additional evaluation requested from prior study. Last screening mammogram was performed 12 month(s) ago. Patient History: Menarche at age 9. Patient has no children. Left ovary removed at age 43. Right ovary removed at age 43. Hysterectomy at age 43. Postmenopausal. Breast cancer, age 60. Currently using Estrogen, beginning at age 47 for 6 years, 1 month. Progesterone, starting at age 57. Patient used Hormonal Contraceptives for 4 years. 02/14/2021, Lumpectomy on the Right side. 02/14/2021, Malignant Core Biopsy on the right side. 01/06/2021, Malignant Core Biopsy on the right side. 03/22/2015, High risk Core Biopsy on the right side. 03/06/2015, High risk Core Biopsy on the right side. Maternal cousin had breast cancer, right, at or over age 50. Mother had breast cancer, right, age 64. Prior Study Comparison: 04/09/2017 Bilateral Screening Mammogram, [facility]. 08/08/2018 Bilateral Screening Mammogram, [facility]. 12/08/2019 Bilateral Screening Mammogram, [facility]. 12/16/2020 Bilateral Screening Mammogram, [facility]. 12/20/2020 Right Diagnostic Mammogram, [facility]. 12/17/2021 Bilateral MG 3D diag mammo w/cad [facility], [facility]. Tissue Density: There are scattered fibroglandular densities. Findings: Analyzed By CAD. Pattern appears stable. Multiple surgical clips from the lumpectomy within the right breast. Right breast is slightly smaller than the left. No significant interval changes are evident. No suspicious groups of microcalcifications, spiculated or lobular masses, architectural distortion or other secondary signs of malignancy are mammographically apparent. Overall Assessment: Benign, BI-RAD 2 Management: Diagnostic Mammogram of both breasts in 1 year. A negative mammogram report should not preclude additional follow up of suspicious palpable abnormalities. Patient should continue monthly self breast exam. A clinical breast exam by your physician is recommended on an annual basis and results should be correlated with mammographic findings. Electronically signed and approved by: Grover Javier D.O. Radiologis
== END | disposition home or self-care (01) ==
LOC: RADMAMWWP 07:02
PROVIDERS: ATTEND Surgery
DX: R92.8 Other abnormal and inconclusive findings on diagnostic imaging of breast (principal); Z78.0 Asymptomatic menopausal state; Z80.3 Family history of malignant neoplasm of breast; Z85.3 Personal history of malignant neoplasm of breast
CPT/HCPCS: 77062; 77066

== ENCOUNTER → 2023-02-24 | Outpatient (CLI) | payer MEDICAID ==
[2023-02-24 16:27] LABS: BUN/Creat Ratio 18.29 Ratio (12.00-20.00); Blood Urea Nitrogen 12.8 mg/dL (9.0-27.0); Chloride 105 mmol/L (96-109); Glucose 92 mg/dL (70-110); Potassium 5.1 mmol/L (3.5-5.5); Sodium 142 mmol/L (135-145)
[2023-02-24 16:28] LABS: ALT 22 U/L (8-44); AST 20 U/L (13-35); Albumin 4.7 d/dL (3.8-4.9); Albumin/Globulin Ratio 2.24 Ratio (1.60-3.17); Alkaline Phosphatase 61 U/L (41-126); Calcium 9.8 mg/dL (8.7-10.3); Carbon Dioxide 26.3 mmol/L (21.6-31.8); Globulin 2.1 d/dL (1.6-3.3); T4, Free (Free Thyroxine) 1.25 ng/dL (0.80-1.80); Total Bilirubin 0.3 mg/dL (0.3-1.2); Total Protein 6.8 d/dL (6.2-8.2)
== END | disposition home or self-care (01) ==
LOC: LABWHC1 10:02
PROVIDERS: ATTEND Internal Medicine
DX: I10 Essential (primary) hypertension (principal); E03.9 Hypothyroidism, unspecified
CPT/HCPCS: 36415; 80053; 84439; 84443

== ENCOUNTER → 2023-08-20 | Outpatient (CLI) | payer MEDICAID ==
[2023-08-20 15:45] LABS: BUN/Creat Ratio 18.83 Ratio (12.00-20.00); Blood Urea Nitrogen 11.3 mg/dL (9.0-27.0); Carbon Dioxide 25.5 mmol/L (21.6-31.8); Chloride 104 mmol/L (96-109); Chol/HDL Ratio 3.51 Ratio; Glucose 90 mg/dL (70-110); LDL Cholesterol,Calculated 137.7 mg/dL (0.0-131.0); Potassium 4.7 mmol/L (3.5-5.5); Sodium 143 mmol/L (135-145)
[2023-08-20 15:46] LABS: ALT 21 U/L (8-44); AST 19 U/L (13-35); Albumin 4.5 g/dL (3.8-4.9); Albumin/Globulin Ratio 1.96 Ratio (1.60-3.17); Alkaline Phosphatase 68 U/L (41-126); Calcium 10.1 mg/dL (8.7-10.3); Globulin 2.3 g/dL (1.6-3.3); T4, Free (Free Thyroxine) 1.32 ng/dL (0.80-1.80); Total Bilirubin 0.3 mg/dL (0.3-1.2); Total Protein 6.8 g/dL (6.2-8.2)
[2023-08-20 18:53] LABS: Microalbumin Creatinine Ratio <15 mg/g Cr (0-30); Urine Creatinine 77.5 mg/dL (28.0-217.0)
== END | disposition home or self-care (01) ==
LOC: LABWHC1 10:56
PROVIDERS: ATTEND Internal Medicine
DX: E03.9 Hypothyroidism, unspecified (principal); E11.9 Type 2 diabetes mellitus without complications; E55.9 Vitamin D deficiency, unspecified
CPT/HCPCS: 36415; 80053; 80061; 82043; 82570; 83036; 84439; 84443

== ENCOUNTER → 2023-12-22 | Outpatient (CLI) | payer MEDICARE ==
[2023-12-22 18:37] LABS: BUN/Creat Ratio 16.67 Ratio (12.00-20.00); Carbon Dioxide 26.1 mmol/L (21.6-31.8); Chloride 101 mmol/L (96-109); Chol/HDL Ratio 3.91 Ratio; Glucose 110 mg/dL (70-110); LDL Cholesterol,Calculated 167.3 mg/dL (0.0-131.0); Sodium 141 mmol/L (135-145); T4, Free (Free Thyroxine) 1.09 ng/dL (0.80-1.80)
== END | disposition home or self-care (01) ==
LOC: LABWHC1 12:50
PROVIDERS: ATTEND Internal Medicine
DX: E03.9 Hypothyroidism, unspecified (principal); E11.9 Type 2 diabetes mellitus without complications
CPT/HCPCS: 36415; 80048; 80061; 83036; 84439; 84443

== ENCOUNTER → 2023-12-27 | Outpatient (CLI) | payer BC ==
--- NOTE | 2023-12-27 07:32 | MM ---
Reason for Exam: Follow-up at short interval from prior study. Last screening mammogram was performed 12 month(s) ago. Patient History: Menarche at age 9. Patient has no children. Left ovary removed at age 43. Right ovary removed at age 43. Hysterectomy at age 43. Postmenopausal. Breast cancer, age 60. Currently using Estrogen, beginning at age 47 for 6 years, 1 month. Progesterone, starting at age 57. Patient used Hormonal Contraceptives for 4 years. 02/14/2021, Lumpectomy on the Right side. 02/14/2021, Malignant Core Biopsy on the right side. 01/06/2021, Malignant Core Biopsy on the right side. 03/22/2015, High risk Core Biopsy on the right side. 03/06/2015, High risk Core Biopsy on the right side. Maternal cousin had breast cancer, right, at or over age 50. Mother had breast cancer, right, age 64. Tissue Density: There are scattered areas of fibroglandular density. Findings: Analyzed By CAD. The pattern is symmetrical. Surgical clips from prior lumpectomy are within normal right breast. No suspicious groups of microcalcifications, spiculated or lobular masses, architectural distortion or other secondary signs of malignancy are mammographically apparent. Overall Assessment: Benign, BI-RAD 2 Management: Screening Mammogram of both breasts in 1 year. A negative mammogram report should not preclude additional follow up of suspicious palpable abnormalities. Patient should continue monthly self breast exam. A clinical breast exam by your physician is recommended on an annual basis and results should be correlated with mammographic findings. Note on Ivory scores and lifetime risk: 1. A Ivory score greater than 3% is considered moderate risk. If this is the case, consider specialist referral to assess eligibility for a risk reducing agent. 2. If overall lifetime risk for the development of breast cancer is 20% or higher, the patient may qualify for future screening with alternating mammogram and breast MRI. Electronically signed and approved by: Grover Javier D.O. Radiologis
== END | disposition home or self-care (01) ==
LOC: RADMAMWWP 06:56
PROVIDERS: ATTEND Surgery
DX: R92.323 Mammographic fibroglandular density, bilateral breasts (principal); R92.8 Other abnormal and inconclusive findings on diagnostic imaging of breast; Z78.0 Asymptomatic menopausal state; Z80.3 Family history of malignant neoplasm of breast
CPT/HCPCS: 77062; 77066

== ENCOUNTER → 2024-04-17 | Outpatient (CLI) | payer MEDICARE ==
[2024-04-17 15:15] LABS: Chol/HDL Ratio 4.44 Ratio
[2024-04-17 15:16] LABS: ALT 21 U/L (8-44); AST 20 U/L (13-35); Albumin 4.5 g/dL (3.8-4.9); Albumin/Globulin Ratio 1.88 Ratio (1.60-3.17); Alkaline Phosphatase 75 U/L (41-126); BUN/Creat Ratio 20.83 Ratio (12.00-20.00); Blood Urea Nitrogen 12.5 mg/dL (9.0-27.0); Calcium 9.7 mg/dL (8.7-10.3); Carbon Dioxide 27.4 mmol/L (21.6-31.8); Chloride 102 mmol/L (96-109); Globulin 2.4 g/dL (1.6-3.3); Glucose 121 mg/dL (70-110); Sodium 140 mmol/L (135-145); Total Bilirubin 0.4 mg/dL (0.3-1.2); Total Protein 6.9 g/dL (6.2-8.2)
== END | disposition home or self-care (01) ==
LOC: LABWHC1 10:18
PROVIDERS: ATTEND Internal Medicine
DX: E11.9 Type 2 diabetes mellitus without complications (principal)
CPT/HCPCS: 36415; 80053; 80061; 83036

== ENCOUNTER → 2024-12-27 | Outpatient (CLI) | payer MEDICARE ==
--- NOTE | 2024-12-27 07:34 | MM ---
Reason for Exam: Screening (asymptomatic). Last screening mammogram was performed 12 month(s) ago. Patient History: Menarche at age 9. Patient has no children. Left ovary removed at age 43. Right ovary removed at age 43. Hysterectomy at age 43. Postmenopausal. Breast cancer, age 60. Currently using Estrogen, beginning at age 47 for 6 years, 1 month. Progesterone, starting at age 57. Patient used Hormonal Contraceptives for 4 years. 02/14/2021, Lumpectomy on the Right side. 02/14/2021, Malignant Core Biopsy on the right side. 01/06/2021, Malignant Core Biopsy on the right side. 03/22/2015, High risk Core Biopsy on the right side. 03/06/2015, High risk Core Biopsy on the right side. 2020, Radiation Therapy on the right side. Maternal cousin had breast cancer, right, at or over age 50. Mother had breast cancer, right, age 64. Prior Study Comparison: 12/17/2021 Bilateral MG 3D diag mammo w/cad [facility], [facility]. 12/23/2022 Bilateral MG 3D diag mammo w/cad [facility], [facility]. 12/27/2023 Bilateral MG 3D diag mammo w/cad [facility], [facility]. Tissue Density: There are scattered areas of fibroglandular density. Findings: Analyzed By CAD. Postsurgical and posttreatment change redemonstrated right breast. Punctate calcification at the surgical site remains unchanged. No significant change from prior exams. Overall Assessment: Benign, BI-RAD 2 Management: Screening Mammogram of both breasts in 1 year. Patient should continue monthly self-breast exams. A clinical breast exam by your physician is recommended on an annual basis. This exam should not preclude additional follow-up of suspicious palpable abnormalities. [facility], , 12/27/2024 7:32 AM. Electronically signed and approved by: Monique Garcia M.D. Radiologist
== END | disposition home or self-care (01) ==
LOC: RADMAMWWP 06:57
PROVIDERS: ATTEND Surgery
DX: Z12.31 Encounter for screening mammogram for malignant neoplasm of breast (principal); R92.323 Mammographic fibroglandular density, bilateral breasts; Z78.0 Asymptomatic menopausal state; Z80.3 Family history of malignant neoplasm of breast; Z85.3 Personal history of malignant neoplasm of breast
CPT/HCPCS: 77063; 77067